=== PATIENT | female | born 1985 | race Hispanic/Latino ===

== ENCOUNTER 2016-06-26 18:43 | Observation (INO) | payer MEDICAID ==
[2016-06-26 18:48] VITALS: TEMP 98.5
[2016-06-26 19:43] LABS: BASO # 0.1 K/uL (0.0-0.2); BASO % 1.3 % (0.0-2.0); EOS % 0.4 % (0.0-4.0); HEMATOCRIT 38.8 % (34.0-47.0); LYMPH # 2.5 K/uL (1.0-4.3); LYMPH % 39.6 % (20.0-40.0); MEAN CELL VOLUME 83.4 fL (81.0-99.0); MEAN CORPUSCULAR HGB CONC 32.4 g/dL (33.0-37.0); MEAN PLATELET VOLUME 7.9 fL (7.2-11.7); MONO # 0.3 K/uL (0.0-0.8); RED CELL DISTRIBUTION WIDTH 17.1 % (11.5-14.5); WHITE BLOOD COUNT 6.4 K/uL (4.8-10.8)
[2016-06-26 19:49] LABS: CHLORIDE 95 mmol/L (98-107); POTASSIUM 3.8 mmol/L (3.6-5.2); SODIUM 142 mmol/L (132-148)
[2016-06-26 19:51] LABS: BILIRUBIN,TOTAL 0.9 mg/dL (0.2-1.3); GFR AFRICAN-AMERICAN > 60
[2016-06-26 19:52] LABS: ALB/GLOB RATIO 1.6 (1.0-2.1); ALKALINE PHOSPHATASE 73 U/L (38-126); ALT/SGPT 30 U/L (9-52); AST/SGOT 43 U/L (14-36); BLOOD UREA NITROGEN 7 mg/dL (7-17); CALCIUM 8.5 mg/dl (8.6-10.4); CARBON DIOXIDE 26 mmol/L (22-30); GLUCOSE,RANDOM 102 mg/dL (65-105); TOTAL PROTEIN 7.5 g/dL (6.3-8.3)
[2016-06-26 19:53] LABS: ALCOHOL SERUM 297 mg/dl (0-10)
--- NOTE | 2016-06-26 20:24 | C.PDOC ---
History Of Present Illness 30 year old female brought to the ED by her family due to the patient's "heavy drinking". Patient states she has been under a lot of stress, her boyfriend of a heroin overdose in February she has been drinkinh heavily since then. She states she is not ready for and does not want detox. She denies any desire to hurt herself or others, but does admit to a history of cutting. Patient's last drink was prior to arrival. She has no physical complaints. Time Seen by Provider: 06/26/16 18:59 Chief Complaint (Nursing): Substance Abuse History Per: Patient, Family History/Exam Limitations: intoxication Onset/Duration Of Symptoms: Persistent (chronic drinker since boyfriend in February ) Current Symptoms Are (Timing): Still Present Suicide/Self Injury Attempted (Context): Cut Wrists Modifying Factor(s): Alcohol Severity: Moderate Associated Symptoms: Depression. denies: Suicidal Thoughts Past Medical History Reviewed: Historical Data, Nursing Documentation, Vital Signs Vital Signs: Last Vital Signs Temp 98.5 F 06/26/16 18:47 Pulse 65 06/26/16 21:12 Resp 17 06/26/16 21:12 BP 120/60 06/26/16 21:12 Pulse Ox 99 06/26/16 21:12 - Medical History PMH: Anxiety, Depression Surgical History: Tonsillectomy Family History: States: No Known Family Hx - Social History Hx Alcohol Use: Yes Hx Substance Use: No - Immunization History Hx Tetanus Toxoid Vaccination: Yes Hx Influenza Vaccination: No Hx Pneumococcal Vaccination: No Review Of Systems Except As Marked, All Systems Reviewed And Found Negative. Constitutional: Positive for: Sweats. Negative for: Fever, Chills Cardiovascular: Negative for: Chest Pain, Palpitations Respiratory: Negative for: Cough, Shortness of Breath Gastrointestinal: Negative for: Nausea, Vomiting, Abdominal Pain, Diarrhea Psych: Positive for: Depression, Other (alcohol abuse). Negative for: Suicidal ideation Physical Exam - Physical Exam Appears: Well, Non-toxic, No Acute Distress, Other (EtOH on breath ) Skin: Warm, Dry, No Rash Head: Normacephalic Eye(s): bilateral: Normal Inspection Oral Mucosa: Moist Neck: Supple Cardiovascular: Rhythm Regular, Other (mildly tachycardic ) Respiratory: Normal Breath Sounds, No Rales, No Rhonchi, No Wheezing Gastrointestinal/Abdominal: Normal Exam, Bowel Sounds, Soft, No Tenderness Extremity: Normal ROM, No Tenderness Extremity: Bilateral: Atraumatic, Normal ROM Neurological/Psych: Oriented x3, Other (mildly intoxicated) Gait: Other (ambulating normally) ED Course And Treatment - Laboratory Results Result Diagrams: 06/26/16 19:36 06/26/16 19:36 O2 Sat by Pulse Oximetry: 97 (room air ) Pulse Ox Interpretation: Normal Progress Note: Blood work, UA, Upreg, UDS ordered and reviewed. Patient placedon ED observation pending sobriety. Crisis counselor Lory spoke with/ evaluated patient. Reevaluation Time: 21:10 Reassessment Condition: Improved (Patient currently AAOx3, and able to ambulate normally. Patient's mother and sister will be taking her home at this time. Patient confirms that she does not have suicidal/homicidal ideations. She was instructed to follow up with her PMd/clinic in 1-2 days, and she understands she should return to ED if symptoms worsen.) ED OBSERVATION Date of observation admission: 06/26/16 Time of observation admission: 19:30 - Observation admission statement Patient is being placed in observation because:: Pending sobriety. - Goals of Observation Goals of observation are:: Sobriety Disposition Counseled Patient/Family Regarding: Studies Performed, Diagnosis, Need For Followup - Disposition Disposition: HOME/ ROUTINE Disposition Time: 21:00 Condition: STABLE - Clinical Impression Clinical Impression: Alcohol dependence, Alcohol intoxication, Depression - Scribe Statement The provider has reviewed the documentation as recorded by the Zhen Keyes All medical record entries made by the Zhen were at my direction and personally dictated by me. I have reviewed the chart and agree that the record accurately reflects my personal performance of the history, physical exam, medical decision making, and the department course for this patient. I have also personally directed, reviewed, and agree with the discharge instructions and disposition.
[2016-06-26 21:14] VITALS: BP 120/60; PULSE 65; RESP 17
[2016-06-26 21:27] LABS: RBC URINE 5 /hpf (0-3); TRANSITIONAL EPITHIAL < 1 /hpf (0-3); URINE BACTERIA RARE (<OCC); URINE BILIRUBIN NEGATIVE (NEGATIVE); URINE COLOR Yellow (YELLOW); URINE GLUCOSE (UA) NORMAL (Normal); URINE KETONE NEGATIVE (NEGATIVE); URINE LEUKOCYTE ESTERASE NEG Leu/uL (Negative); URINE PROTEIN NEGATIVE (NEGATIVE); URINE UROBILINOGEN NORMAL mg/dL (0.2-1.0); WBC URINE 1 /hpf (0-5)
[2016-06-26 21:28] LABS: URINE BLOOD 1+ (NEGATIVE)
[2016-06-29 10:23] VITALS: O2SAT 97
== END 2016-06-26 21:02 | disposition home or self-care (01) ==
LOC: C.ER 18:43 → C.9OBSV 20:14
PROVIDERS: ADMIT Emergency Medicine; ATTEND Emergency Medicine
DX: F10.220 Alcohol dependence with intoxication, uncomplicated (principal); Y90.8 Blood alcohol level of 240 mg/100 ml or more
CPT/HCPCS: 80053; 80320; 80324; 80345; 80346; 80349; 80353; 80358; 80361; 81001; 83992; 84703; 85025; 99283; G0378